=== PATIENT | male | born 1985 | race Caucasian/White ===

== ENCOUNTER 2017-10-12 05:54 | Emergency (ER) | payer SELFPAY ==
[2017-10-12] MEDS ORDERED: Adacel (T-DAP) 0.5 ML VIAL ONE (07:04)
--- NOTE | 2017-10-12 07:56 | CT ---
CT BRAIN WITHOUT CONTRAST: Date: 10/12/17 INDICATION: History of fall with lower head pain. COMPARISON: Prior exam dated 01/21/07. FINDINGS: No acute infarct, hemorrhage, or hydrocephalus present. Septum pellucidum and third ventricle are mid line. Skull and extracranial soft tissues appear within normal limits. IMPRESSION: No acute intracranial abnormality. POS: BH
--- NOTE | 2017-10-12 07:58 | RAD ---
3 VIEWS RIGHT ANKLE: Date: 10/12/17 INDICATION: Tripped and fell, with right ankle pain. COMPARISON: None. IMPRESSION: No acute fracture or subluxation is evident. Ankle mortise and talar dome appear within normal limits . Visualized hindfoot appears within normal limits. POS: BH
--- NOTE | 2017-10-12 07:58 | RAD ---
2 VIEWS ABDOMEN: Date: 10/12/17 INDICATION: History of tripping and falling, and having a puncture wound to the anterior aspect of the abdominal wall. FINDINGS: There is soft tissue swelling overlying the upper abdominal wall. No soft tissue gas is evident. No f ree air is evident. Bowel gas pattern is unobstructed. Lung bases are clear. IMPRESSION: No acute abnormality. POS: BH
== END 2017-10-12 07:31 | disposition home or self-care (01) ==
LOC: SCSER 05:54
DX: S31.132A Puncture wound of abdominal wall without foreign body, epigastric region without penetration into peritoneal cavity, initial encounter (principal); S93.401A Sprain of unspecified ligament of right ankle, initial encounter; S00.01XA Abrasion of scalp, initial encounter; F17.210 Nicotine dependence, cigarettes, uncomplicated; F41.9 Anxiety disorder, unspecified; W01.0XXA Fall on same level from slipping, tripping and stumbling without subsequent striking against object, initial encounter
CPT/HCPCS: 70450; 74019; 90471; 90715

== ENCOUNTER 2020-08-08 09:59 | Emergency (ER) | payer SELFPAY | END 2020-08-08 12:05 | disposition home or self-care (01) | LOC: ERS 09:59 | DX: R05 Cough (principal); R09.81 Nasal congestion; F17.220 Nicotine dependence, chewing tobacco, uncomplicated | CPT/HCPCS: 71045 ==

== ENCOUNTER 2021-02-11 22:04 | Emergency (ER) | payer SELFPAY | END 2021-02-11 23:25 | disposition home or self-care (01) | LOC: ERS 22:04 | DX: S63.601A Unspecified sprain of right thumb, initial encounter (principal); W22.8XXA Striking against or struck by other objects, initial encounter; J45.909 Unspecified asthma, uncomplicated; F17.210 Nicotine dependence, cigarettes, uncomplicated ==